=== PATIENT | male | born 1990 | race African-American/Black ===

== ENCOUNTER 2017-09-19 08:07 | Emergency (ER) | payer SELFPAY ==
[2017-09-19] MEDS ORDERED: CYCLOBENZAPRINE 10 MG TAB ONE (08:27)
[2017-09-19] MEDS ORDERED: KETOROLAC 30 MG/ML INJ ONE (08:29)
--- NOTE | 2017-09-19 09:25 | RAD REPORT ---
EXAM DESCRIPTION: Shoulder Right 2 View - 09/19/2017 8:49 am CLINICAL HISTORY: Shoulder pain, history of dislocation several years earlier COMPARISON: None. TECHNIQUE: Internal and external rotation views of the right shoulder were obtained. Scapular Y-view also obtained FINDINGS: There is no fracture or dislocation. AC joint is normal in appearance. No deformity of the humeral head identifiable. Acromial humeral joint space is normal. No abnormal soft tissue calcifica tions. No acute or suspicious findings. Ribs in lung parenchyma of the upper chest are unremarkable. IMPRESSION: Negative two-view right shoulder examination.
--- NOTE | 2017-09-19 09:37 | ER ---
Nurse's Notes [facility] Name: Eron Das Age: 27 yrs Sex: Male : 1990 Arrival Date: 09/19/2017 Time: 08:08 Bed 14 Private MD: Diagnosis: Pain in right shoulder Presentation: 09/19 08:14 Presenting complaint: Patient states: " My right shoulder and back hurt." Denies known ph injury, reports pain that began yesterday in R upper back and shoulder that radiates to elbow. Transition of care: patient was not received from another setting of care. Onset of symptoms was September 19, 2017. Initial Sepsis Screen: Does the patient meet any 2 criteria? No. Patient's initial sepsis screen is negative. Does the patient have a suspected source of infection? No. Patient's initial sepsis screen is negative. Care prior to arrival: None. 08:14 Method Of Arrival: Ambulatory 08:14 Acuity: HOOD 4 ph Historical: - Allergies: 08:16 No Known Allergies; ph - Home Meds: 08:16 None [Active]; ph - PMHx: 08:16 None; ph - PSHx: 08:16 None; ph - Immunization history:: Adult Immunizations up to date. - Social history:: Smoking status: Patient uses tobacco products, smokes one-half pack cigarettes per day. Screenin:18 Abuse screen: Denies threats or abuse. Denies injuries from another. Nutritional ch screening: No deficits noted. Tuberculosis screening: No symptoms or risk factors identified. Fall Risk None identified. Assessment: 08:18 General: Appears in no apparent distress. comfortable, Behavior is calm, cooperative, ch appropriate for age. Pain: Complains of pain in left trapezius, left scapular area and right arm Pain currently is 10 out of 10 on a pain scale. Pain began suddenly. Neuro: No deficits noted. Cardiovascular: Heart tones S1 S2 present. Respiratory: Airway is patent Respiratory effort is even, unlabored. GI: No signs and/or symptoms were reported involving the gastrointestinal system. : No signs and/or symptoms were reported regarding the genitourinary system. Derm: Skin is pink, warm \\T\\ dry. Musculoskeletal: Circulation, motion, and sensation intact. Capillary refill < 3 seconds, in bilateral fingers. toes. Range of motion: limited in right shoulder pt c/o pain to R shoulder. 08:34 Reassessment: pt. went to X-ray. rb1 09:10 Reassessment: Patient appears in no apparent distress at this time. Patient and/or ph family updated on plan of care and expected duration. Pain level reassessed. Patient is alert, oriented x 3, equal unlabored respirations, skin warm/dry/pink. 10:09 Reassessment: Patient appears in no apparent distress at this time. No changes from ph previously documented assessment. Family at bedside. Vital Signs: 08:15 BP 103 / 81; Pulse 76; Resp 18; Temp 97.8; Pulse Ox 98% on R/A; Weight 63.5 kg; Height ph 5 ft. 4 in. (162.56 cm); Pain 10/10; 08:34 rb1 09:10 BP 102 / 78; Pulse 74; Resp 17; Pulse Ox 99% on R/A; Pain 8/10; ph 10:00 BP 103 / 79; Pulse 59; Resp 16; Pulse Ox 100% on R/A; ph 08:15 Body Mass Index 24.03 (63.50 kg, 162.56 cm) ph 08:34 pt. went to X-ray [facility] ED Course: 08:08 Patient arrived in ED. ph 08:15 Triage completed. ph 08:16 Reese Alexandra PA is PHCP. cp 08:16 Reese Noble MD is Attending Physician. cp 08:16 Arm band placed on. ph 08:18 Allison James, LASHONDA is Primary Nurse. ch 08:18 No apparent distress. Resting quietly. ch 08:18 Patient has correct armband on for positive identification. Bed in low position. Call ch light in reach. Side rails up X 1. Adult w/ patient. Warm blanket given. 08:18 No provider procedures requiring assistance completed. Patient did not have IV access ch during this emergency room visit. 08:39 XRAY Shoulder RIGHT 2 view In Process Unspecified. EDMS 09:35 Kenny Shetty MD is Referral Physician. cp 10:13 No provider procedures requiring assistance completed. Patient did not have IV access ph during this emergency room visit. Administered Medications: 08:32 Drug: TORadol 60 mg Route: IM; Site: right gluteus; rb1 08:32 Drug: Flexeril 10 mg Route: PO; rb1 Outcome: 09:36 Discharge ordered by . cp 10:13 Discharged to home ambulatory, with family. ph 10:13 Condition: stable 10:13 Discharge instructions given to patient, Instructed on discharge instructions, follow up and referral plans. medication usage, Demonstrated understanding of instructions, follow-up care, medications, Prescriptions given X 2. 10:14 Patient left the ED. ph Signatures: Dispatcher [employer] EDMS Allison James RN RN Francisca Quintanilla RN RN ph Reese Alexandra PA PA cp Barber, Rebecca, RN RN rb1 Corrections: (The following items were deleted from the chart) 10:13 09:10 BP 102 / 78; Pulse 74bpm; Resp 17bpm; Pulse Ox 99% RA; ph ph
--- NOTE | 2017-09-19 09:37 | EDPHYS ---
Physician Documentation [facility] Name: Eron Das Age: 27 yrs Sex: Male : 1990 Arrival Date: 09/19/2017 Time: 08:08 Bed 14 Private MD: ED Physician Reese Noble HPI: 09/19 08:23 This 27 yrs old Black Male presents to ER via Ambulatory with complaints of right cp shoulder pain. 08:23 The patient or guardian complains of decreased range of motion, pain, that is acute. cp right shoulder. 08:23 Context: resulted from an unknown reason, The patient experiences decreased range of cp motion, when attempts to raise arm. 08:23 Onset: The symptoms/episode began/occurred yesterday. Associated signs and symptoms: cp Pertinent negatives: chest pain, diaphoresis, neck pain, Numbness in right arm shortness of breath, Weakness in right arm. Severity of symptoms: in the emergency department the symptoms are unchanged, despite home interventions. Historical: - Allergies: 08:16 No Known Allergies; ph - Home Meds: 08:16 None [Active]; ph - PMHx: 08:16 None; ph - PSHx: 08:16 None; ph - Immunization history:: Adult Immunizations up to date. - Social history:: Smoking status: Patient uses tobacco products, smokes one-half pack cigarettes per day. ROS: 08:25 Eyes: Negative for injury, pain, redness, and discharge. cp 08:25 Constitutional: Negative for body aches, chills, fever, poor PO intake. 08:25 ENT: Negative for drainage from ear(s), ear pain, sore throat, difficulty swallowing, difficulty handling secretions. 08:25 Neck: Negative for pain with movement, pain at rest, stiffness, tenderness, bony tenderness. 08:25 Cardiovascular: Negative for chest pain, edema, palpitations. 08:25 Respiratory: Negative for cough, shortness of breath, wheezing. 08:25 Abdomen/GI: Negative for abdominal pain, nausea, vomiting, and diarrhea, anorexia. 08:25 Back: Negative for pain at rest, pain with movement, radiated pain. 08:25 MS/extremity: Positive for decreased range of motion, pain, tenderness, of the right shoulder, Negative for injury or acute deformity, paresthesias. 08:25 Skin: Negative for cellulitis, rash. 08:25 Neuro: Negative for altered mental status, headache, numbness, tingling, weakness. 08:25 All other systems are negative. Exam: 08:30 Constitutional: The patient appears in no acute distress, alert, awake, non-toxic, well cp developed, well nourished. 08:30 Head/Face: Normocephalic, atraumatic. cp 08:30 Eyes: Periorbital structures: appear normal, Conjunctiva: normal, no exudate, no injection, Lids and lashes: appear normal, bilaterally. 08:30 ENT: External ear(s): are unremarkable, Nose: is normal, Mouth: Lips: moist, Oral mucosa: moist, Posterior pharynx: is normal, airway is patent, no erythema, no exudate. 08:30 Neck: C-spine: vertebral tenderness, is not appreciated, crepitus, is not appreciated, ROM/movement: is normal, is supple, without pain, no range of motions limitations, no nuchal rigidity. 08:30 Chest/axilla: Inspection: normal, Palpation: is normal, no crepitus, no tenderness. 08:30 Cardiovascular: Rate: normal, Rhythm: regular. 08:30 Respiratory: the patient does not display signs of respiratory distress, Respirations: normal, no use of accessory muscles, no retractions, no splinting, no tachypnea, labored breathing, is not present, Breath sounds: are clear throughout, no decreased breath sounds, no stridor, no wheezing. 08:30 Abdomen/GI: Exam negative for discomfort, distension, guarding, Inspection: abdomen appears normal. 08:30 Back: pain, is absent, ROM is normal, muscle spasm, is not present. 08:30 Musculoskeletal/extremity: Extremities: grossly normal except: noted in the right lateral shoulder: decreased ROM, pain, tenderness, There is no evidence of deformity, Pulses: noted to be 2+ in the right radial artery and left radial artery, Sensation intact. 08:30 Skin: cellulitis, is not appreciated, no rash present. Vital Signs: 08:15 BP 103 / 81; Pulse 76; Resp 18; Temp 97.8; Pulse Ox 98% on R/A; Weight 63.5 kg; Height ph 5 ft. 4 in. (162.56 cm); Pain 10/10; 08:34 rb1 09:10 BP 102 / 78; Pulse 74; Resp 17; Pulse Ox 99% on R/A; Pain 8/10; ph 10:00 BP 103 / 79; Pulse 59; Resp 16; Pulse Ox 100% on R/A; ph 08:15 Body Mass Index 24.03 (63.50 kg, 162.56 cm) ph 08:34 pt. went to X-ray rb1 MDM: 08:16 Patient medically screened. cp 09:00 Differential diagnosis: Anterior dislocation with fracture, Anterior dislocation cp without fracture, Posterior dislocation with fracture, Posterior dislocation without fracture, tendonitis. 09:35 Data reviewed: vital signs, nurses notes, radiologic studies, plain films, and as a cp result, I will discharge patient. 09:35 Test interpretation: by ED physician or midlevel provider: plain radiologic studies. cp 09:35 Counseling: I had a detailed discussion with the patient and/or guardian regarding: the cp historical points, exam findings, and any diagnostic results supporting the discharge/admit diagnosis, radiology results, the need for outpatient follow up, a orthopedic surgeon, to return to the emergency department if symptoms worsen or persist or if there are any questions or concerns that arise at home. Response to treatment: the patient's symptoms have mildly improved after treatment, and as a result, I will discharge patient. 09/19 08:23 Order name: XRAY Shoulder RIGHT 2 view; Complete Time: 09:26 cp 09/19 09:26 Interpretation: Reviewed. 09/19 09:15 Order name: Sling; Complete Time: 10:10 cp Administered Medications: 08:32 Drug: TORadol 60 mg Route: IM; Site: right gluteus; rb1 08:32 Drug: Flexeril 10 mg Route: PO; rb1 Disposition: 16:37 Co-signature as Attending Physician, Reese Noble MD I agree with the assessment and mi plan of care. Disposition: 09/19/17 09:36 Discharged to Home. Impression: Pain in right shoulder. - Condition is Stable. - Discharge Instructions: Shoulder Pain. - Prescriptions for Cyclobenzaprine 10 mg Oral Tablet - take 1 tablet by ORAL route every 8 hours As needed; 20 tablet. Diclofenac Sodium 75 mg Oral Tablet Sustained Release - take 1 tablet by ORAL route 2 times per day; 30 tablet. - Work release form, Medication Reconciliation Form, Thank You Letter, Antibiotic Education, Prescription Opioid Use form. - Follow up: Kenny Shetty MD; When: 2 - 3 days; Reason: right shoulder pain. - Problem is new. - Symptoms have improved. Signatures: Dispatcher [employer] Allison Rodriguez, RN RN Reese Priest MD MD cha Hall, Patricia, RN RN ph Reese Alexandra, PA Nadira Siegel cp, RN RN rb1 Corrections: (The following items were deleted from the chart) 10:14 09:36 09/19/2017 09:36 Discharged to Home. Impression: Pain in right shoulder. ph Condition is Stable. Forms are Medication Reconciliation Form, Thank You Letter, Antibiotic Education, Prescription Opioid Use. Follow up: Kenny Shetty; When: 2 - 3 days; Reason: right shoulder pain. Problem is new. Symptoms have improved. cp
== END 2017-09-19 10:14 | disposition home or self-care (01) ==
LOC: ER 08:07
DX: M25.511 Pain in right shoulder (principal); F17.210 Nicotine dependence, cigarettes, uncomplicated
CPT/HCPCS: 96372; 99283

== ENCOUNTER 2018-11-03 13:53 | Emergency (ER) | payer SELFPAY ==
[2018-11-03] MEDS ORDERED: IBUPROFEN 400 MG TAB ONE (14:40)
--- NOTE | 2018-11-03 15:27 | EDPHYS ---
Physician Documentation [facility] Name: Eron Das Age: 28 yrs Sex: Male : 1990 Arrival Date: 11/03/2018 Time: 13:56 Bed 12 Private MD: ED Physician Ramirez Noel HPI: 11/03 14:19 This 28 yrs old Black Male presents to ER via Ambulatory with complaints of Back Pain. m 14:19 The patient presents with sore throat. Onset: The symptoms/episode began/occurred jmm gradually, 2 day(s) ago. Modifying factors: The symptoms are alleviated by nothing, the symptoms are aggravated by nothing. Associated signs and symptoms: Pertinent positives: fever, headache. This is a 28 year old male with no chronic medical conditions that presents to the ED with complaints of sore throat, headache, and right upper back pain. Patient denies injury. . Historical: - Allergies: 14:00 No Known Allergies; aj1 - Home Meds: 14:00 None [Active]; aj1 - PMHx: 14:00 None; aj1 - PSHx: 14:00 None; aj1 - Immunization history:: Flu vaccine is not up to date. - Social history:: Smoking status: Patient uses tobacco products, smokes one-half pack cigarettes per day. - Ebola Screening: : Patient denies travel to an Ebola-affected area in the 21 days before illness onset. ROS: 14:19 Constitutional: Positive for fever. jmm 14:19 ENT: Positive for sore throat. 14:19 Back: Positive for pain with movement. 14:19 Neuro: Positive for headache. 14:19 All other systems are negative. Exam: 14:19 Head/Face: atraumatic. Eyes: EOMI, no conjunctival erythema appreciated jmm 14:19 Neck: Trachea midline, Supple Chest/axilla: Normal chest wall appearance and motion. 14:19 Constitutional: The patient appears alert, awake, uncomfortable. 14:19 ENT: Posterior pharynx: Uvula: normal, midline, erythema, that is moderate, peritonsillar mass, is not appreciated. 14:19 Cardiovascular: Rate: normal, Rhythm: regular. 14:19 Respiratory: the patient does not display signs of respiratory distress, Respirations: normal. 14:19 Back: right sided trapezius pain on palpation. 14:19 Musculoskeletal/extremity: ROM: intact in all extremities. 14:19 Skin: Appearance: Color: normal in color, pink. 14:19 Neuro: Orientation: is normal, Mentation: is normal, Memory: is normal. 14:19 Psych: Behavior/mood is pleasant, cooperative. Vital Signs: 14:00 BP 124 / 89; Pulse 67; Resp 16; Temp 98.3; Pulse Ox 100% on R/A; Height 5 ft. 9 in. aj1 (175.26 cm) (R); Pain 10/10; MDM: 14:19 Patient medically screened. [facility] 15:22 Data reviewed: vital signs, nurses notes. Counseling: I had a detailed discussion with sima the patient and/or guardian regarding: the historical points, exam findings, and any diagnostic results supporting the discharge/admit diagnosis, lab results, the need for outpatient follow up. ED course: Back pain appears musculoskeletal, no midline tenderness, no chest pain. Strep positive. No clinical signs of fishing captain appreciated. Patient prescribed oral steroids and otherwise given strict return precautions. Patient understood and agrees with the plan of care. . 11/03 14:03 Order name: Strep; Complete Time: 14:39 aj Administered Medications: 14:26 Drug: Motrin 800 mg Route: PO; ss 15:41 Follow up: Response: [facility] adverse [facility] 15:41 Drug: Dexamethasone 10 mg Route: IM; Site: right deltoid; aj 15:50 Follow up: Response: No adverse reaction; No adverse reaction, no adverse reaction as ss of now. Pt states he would not like to wait for the rest of his 15 minutes shot time. Verbalizes understanding of risks involved. Disposition: 16:54 Co-signature as Attending Physician, Ramirez Noel MD. rn Disposition: 11/03/18 15:26 Discharged to Home. Impression: Streptococcal pharyngitis. - Condition is Stable. - Discharge Instructions: Strep Throat. - Prescriptions for Amoxicillin 875 mg Oral Tablet - take 1 tablet by ORAL route every 12 hours for 10 days; 20 tablet. - Medication Reconciliation Form, Thank You Letter, Antibiotic Education, Prescription Opioid Use form. - Follow up: Private Physician; When: 2 - 3 days; Reason: Recheck today's complaints, Continuance of care, Re-evaluation by your physician. Signatures: Dispatcher [employer] EDBria Gonsalves, RN RN aj1 Yg Dominguez PA PA jmm Nieto, Roman, MD MD rn [facility] RN RN ss Corrections: (The following items were deleted from the chart) 15:57 15:26 11/03/2018 15:26 Discharged to Home. Impression: Streptococcal pharyngitis. aj1 Condition is Stable. Forms are Medication Reconciliation Form, Thank You Letter, Antibiotic Education, Prescription Opioid Use. Follow up: Private Physician; When: 2 - 3 days; Reason: Recheck today's complaints, Continuance of care, Re-evaluation by your physician. rosa
--- NOTE | 2018-11-03 15:27 | ER ---
Nurse's Notes [facility] Name: Eron Das Age: 28 yrs Sex: Male : 1990 Arrival Date: 11/03/2018 Time: 13:56 Bed 12 Private MD: Diagnosis: Streptococcal pharyngitis Presentation: 11/03 13:58 Presenting complaint: Patient states: "It started Monday, it started with a aj1 migraine, then I woke up and my whole body is in pain. Then I woke up yesterday and sweat like I just got out the shower. Then I woke up this morning and my tonsils are swollen". Transition of care: patient was not received from another setting of care. Onset of symptoms was October 2018. Risk Assessment: Do you want to hurt yourself or someone else? Patient reports no desire to harm self or others. Initial Sepsis Screen: Does the patient meet any 2 criteria? No. Patient's initial sepsis screen is negative. Does the patient have a suspected source of infection? No. Patient's initial sepsis screen is negative. Care prior to arrival: None. 13:58 Method Of Arrival: Ambulatory aj1 13:58 Acuity: HOOD 4 aj1 Triage Assessment: 14:00 General: Appears in no apparent distress. comfortable, Behavior is calm, cooperative, aj1 appropriate for age. Pain: Complains of pain in generalized body aches Pain currently is 10 out of 10 on a pain scale. Neuro: Level of Consciousness is awake, alert, obeys commands. Cardiovascular: Patient's skin is warm and dry. Respiratory: Airway is patent Respiratory effort is even, unlabored, Respiratory pattern is regular, symmetrical. Historical: - Allergies: 14:00 No Known Allergies; aj1 - Home Meds: 14:00 None [Active]; aj1 - PMHx: 14:00 None; aj1 - PSHx: 14:00 None; aj1 - Immunization history:: Flu vaccine is not up to date. - Social history:: Smoking status: Patient uses tobacco products, smokes one-half pack cigarettes per day. - Ebola Screening: : Patient denies travel to an Ebola-affected area in the 21 days before illness onset. Screenin:05 Abuse screen: Denies threats or abuse. Denies injuries from another. Nutritional aj1 screening: No deficits noted. Tuberculosis screening: No symptoms or risk factors identified. 15:41 Fall Risk None identified. aj1 Assessment: 14:05 General: Appears in no apparent distress. uncomfortable, Behavior is calm, cooperative, aj1 appropriate for age. Pain: Complains of pain in generalized body aches Pain currently is 10 out of 10 on a pain scale. Neuro: Level of Consciousness is awake, alert, obeys commands, Oriented to person, place, time, situation, Gait is steady, Speech is normal. Cardiovascular: Patient's skin is warm and dry. Respiratory: Airway is patent Respiratory effort is even, unlabored, Respiratory pattern is regular, symmetrical. GI: No signs and/or symptoms were reported involving the gastrointestinal system. : No signs and/or symptoms were reported regarding the genitourinary system. EENT: Throat is reddened has enlarged tonsils bilaterally Reports sore throat. Derm: No signs and/or symptoms reported regarding the dermatologic system. Skin is pink, warm \\T\\ dry. normal. Musculoskeletal: Range of motion: intact in all extremities. 15:05 Reassessment: Patient appears in no apparent distress at this time. No changes from aj1 previously documented assessment. Patient and/or family updated on plan of care and expected duration. Pain level reassessed. Patient is alert, oriented x 3, equal unlabored respirations, skin warm/dry/pink. 15:41 Reassessment: Patient appears in no apparent distress at this time. No changes from aj1 previously documented assessment. Patient and/or family updated on plan of care and expected duration. Pain level reassessed. Patient is alert, oriented x 3, equal unlabored respirations, skin warm/dry/pink. Vital Signs: 14:00 BP 124 / 89; Pulse 67; Resp 16; Temp 98.3; Pulse Ox 100% on R/A; Height 5 ft. 9 in. aj1 (175.26 cm) (R); Pain 10/10; ED Course: 13:56 Patient arrived in ED. as 13:59 Triage completed. aj1 14:00 Arm band placed on Patient placed in an exam room. 1 14:03 Yg Dominguez PA is PHCP. [facility] 14:03 Ramirez Noel MD is Attending Physician. [facility] 14:04 Lyle, Bria, RN is Primary Nurse. aj1 14:05 Patient has correct armband on for positive identification. aj1 14:05 No provider procedures requiring assistance completed. aj1 15:41 Patient did not have IV access during this emergency room visit. aj1 Administered Medications: 14:26 Drug: Motrin 800 mg Route: PO; ss 15:41 Follow up: Response: No adverse reaction aj1 15:41 Drug: Dexamethasone 10 mg Route: IM; Site: right deltoid; aj1 15:50 Follow up: Response: No adverse reaction; No adverse reaction, no adverse reaction as ss of now. Pt states he would not like to wait for the rest of his 15 minutes shot time. Verbalizes understanding of risks involved. Outcome: 15:26 Discharge ordered by . rosa 15:43 Condition: good ss 15:50 Discharged to home ambulatory. ss 15:50 Discharge instructions given to patient, Instructed on discharge instructions, follow up and referral plans. medication usage, Demonstrated understanding of instructions, follow-up care, medications, Prescriptions given X 1. 15:57 Patient left the ED. aj1 Signatures: Bria Alvarenga, RN RN aj1 Yg Dominguez PA PA jmm Martinez, Amelia as Rosie Christy RN RN ss
[2018-11-03] MEDS ORDERED: DEXAMETHASONE 10 MG/ML VIAL ONE (15:52)
== END 2018-11-03 15:57 | disposition home or self-care (01) ==
LOC: ER 13:53
DX: J02.0 Streptococcal pharyngitis (principal); F17.210 Nicotine dependence, cigarettes, uncomplicated
CPT/HCPCS: 87081; 96372; 99283; J1100

== ENCOUNTER 2020-05-13 03:18 | Emergency (ER) | payer SELFPAY ==
[2020-05-13] MEDS ORDERED: IPRATROPIUM BROM 0.5MG/2.5ML ONE (04:02)
[2020-05-13] MEDS ORDERED: METHYLPREDNISOLONE 125 MG INJ ONE (04:02)
[2020-05-13] MEDS ORDERED: LEVALBUTEROL 1.25 MG/3 ML NEB ONE (04:03)
[2020-05-13] MEDS ORDERED: Magnesium Sulfate 2gm IVPB 2 G/50 ML BAG IV ONE (04:03)
[2020-05-13 05:22] LABS: SARS-COV-2 RT PCR NEGATIVE (NEGATIVE)
--- NOTE | 2020-05-13 05:30 | EDPHYS ---
Physician Documentation [facility] Name: Eron Das Age: 29 yrs Sex: Male : 1990 Arrival Date: 05/13/2020 Time: 03:21 Bed 13 Private MD: ED Physician Ramirez Noel HPI: 05/13 03:49 This 29 yrs old Black Male presents to ER via Ambulatory with complaints of Asthma rn Exacerbation. 03:49 The patient presents to the emergency department with wheezing, that began without any rn particular precipitating event, the patient was reported to have audible wheezing, trouble breathing. Onset: The symptoms/episode began/occurred today. Modifying factors: The symptoms are alleviated by nothing, the symptoms are aggravated by nothing. Severity of symptoms: At their worst the symptoms were moderate in the emergency department the symptoms are unchanged. The patient has experienced similar episodes in the past. The patient has not recently seen a physician. Denies fever or feeling ill, reports identical to previous asthma exacerbations. No known sick contacts. . Historical: - Allergies: 03:37 No Known Allergies; sg - Home Meds: 03:37 Albuterol Inhl [Active]; sg - PMHx: 03:37 Asthma; sg - PSHx: 03:37 None; sg - Immunization history:: Adult Immunizations up to date. - Social history:: Smoking status: Patient reports the use of cigarette tobacco products. - Family history:: not pertinent. - Hospitalizations: : No recent hospitalization is reported. ROS: 03:49 Constitutional: Negative for fever, chills, and weight loss, Eyes: Negative for injury, rn pain, redness, and discharge, Neck: Negative for injury, pain, and swelling, Cardiovascular: Negative for chest pain, palpitations, and edema, Respiratory: Negative for pleuritic chest pain Abdomen/GI: Negative for abdominal pain, nausea, vomiting, diarrhea, and constipation, Back: Negative for injury and pain, MS/Extremity: Negative for injury and deformity, Skin: Negative for injury, rash, and discoloration, Neuro: Negative for headache, weakness, numbness, tingling, and seizure. Exam: 03:49 Constitutional: Thin male, moderate tachypnea, but then stops interview to talk on rn phone Head/Face: Normocephalic, atraumatic. ENT: No stridor Cardiovascular: Regular rate and rhythm Respiratory: + moderate tachypnea, 3-4 word sentences. Skin: No cyanosis MS/ Extremity: Pulses equal, no cyanosis. Neuro: Awake and alert, GCS 15 Vital Signs: 03:37 BP 132 / 70; Pulse 68; Resp 26; Temp 98.9(TE); Pulse Ox 99% on R/A; sg 03:41 Weight 63.5 kg; Height 5 ft. 5 in. (165.10 cm); sg 05:00 BP 118 / 69; Pulse 85; Resp 17; Pulse Ox 100% on R/A; ll2 03:41 Body Mass Index 23.30 (63.50 kg, 165.10 cm) sg MDM: 03:37 Patient medically screened. rn 05:27 Differential diagnosis: acute asthma, reactive airway. Differential diagnosis: URI. rn Data reviewed: vital signs, nurses notes. Data reviewed: lab test result(s), radiologic studies, plain films, and as a result, I will discharge patient. Counseling: I had a detailed discussion with the patient and/or guardian regarding: the historical points, exam findings, and any diagnostic results supporting the discharge/admit diagnosis, lab results, radiology results, the need for outpatient follow up, to return to the emergency department if symptoms worsen or persist or if there are any questions or concerns that arise at home. Response to treatment: the patient's symptoms have markedly improved after treatment, the patient's condition has returned to base line, the patient is now symptom free, and as a result, I will discharge patient. Special discussion: I discussed with the patient/guardian in detail that at this point there is no indication for admission to the hospital. It is understood, however, that if the symptoms persist or worsen the patient needs to return immediately for re-evaluation. 05:27 ED course: Pt feels much better, clear cxr, covid and flu neg. Will dc home with rn steroids. Has inhaler. . 05/13 03:41 Order name: XRAY Chest (1 view) rn 05/13 05:22 Order name: COVID-19/FLU A+B; Complete Time: 05:27 EDMS 05/13 03:41 Order name: IV Start; Complete Time: 04:12 rn Administered Medications: 04:12 Drug: SOLU-Medrol 125 mg Route: IVP; Site: right antecubital; ll2 05:15 Follow up: Response: No adverse reaction ll2 04:12 Drug: Magnesium Sulfate 1 grams Route: IVPB; Infused Over: 1 hrs; Site: right ll2 antecubital; 05:15 Follow up: Response: No adverse reaction; IV Status: Completed infusion; IV Intake: ll2 100ml 04:12 Drug: Xopenex (3) 1.25 mg Route: Inhalation; ll2 05:15 Follow up: Response: No adverse reaction ll2 04:13 Drug: AtroVENT Aerosol 0.5 mg Route: Inhalation; ll2 05:15 Follow up: Response: No adverse reaction ll2 Disposition: 05/13/20 05:29 Discharged to Home. Impression: Unspecified asthma with (acute) exacerbation. - Condition is Stable. - Discharge Instructions: Asthma, Adult. - Prescriptions for Prednisone 20 mg Oral Tablet - take 3 tablet by ORAL route once daily for 5 days; 15 tablet. Albuterol Sulfate 90 mcg/actuation - inhale 1-2 puff by INHALATION route every 4-6 hours; 1 Inhaler. - Medication Reconciliation Form, Thank You Letter, Antibiotic Education, Prescription Opioid Use form. - Follow up: Private Physician; When: As needed; Reason: Recheck today's complaints, Re-evaluation by your physician. - Problem is an acute exacerbation. - Symptoms have improved. Signatures: Dispatcher [employer] EDKenny Nunes RN Ramirez Vargas MD MD rn Linscombe, Lacie, RN RN ll2 Corrections: (The following items were deleted from the chart) 04:20 03:42 Influenza Screen (A \T\ B)+BA.LAB.BRZ ordered. EDMS EDMS 04:22 03:42 CORONAVIRUS+MR.LAB.BRZ ordered. EDMS EDMS 05:38 05:29 05/13/2020 05:29 Discharged to Home. Impression: Unspecified asthma with (acute) ll2 exacerbation. Condition is Stable. Forms are Medication Reconciliation Form, Thank You Letter, Antibiotic Education, Prescription Opioid Use. Follow up: Private Physician; When: As needed; Reason: Recheck today's complaints, Re-evaluation by your physician. Problem is an acute exacerbation. Symptoms have improved. rn
--- NOTE | 2020-05-13 05:30 | ER ---
Nurse's Notes [facility] Name: Eron Das Age: 29 yrs Sex: Male : 1990 Arrival Date: 05/13/2020 Time: 03:21 Bed 13 Private MD: Diagnosis: Unspecified asthma with (acute) exacerbation Presentation: 05/13 03:37 Chief complaint: Patient states: I had asthma as a child, then it just went away so I sg haven't had to be on any medications, until recently. I saw my pcp and he prescribed me the pump again, albuterol, it hasnt really kicked in or isnt working for me. My chest feels tight and Im having some shortness of breath. pt denies N/V/D/Fever at this time for triage. Coronavirus screen: Client denies travel out of the [place] in the last 14 days. shortness of breath, Client presents with at least one sign or symptom that may indicate coronavirus-19. Standard/surgical mask placed on the client. Provider contacted for isolation considerations. The client denies any previous COVID testing. Ebola Screen: Patient negative for fever greater than or equal to 101.5 degrees Fahrenheit, and additional compatible Ebola Virus Disease symptoms Patient denies exposure to infectious person. Patient denies travel to an Ebola-affected area in the 21 days before illness onset. No symptoms or risks identified at this time. Initial Sepsis Screen: Does the patient meet any 2 criteria? No. Patient's initial sepsis screen is negative. Does the patient have a suspected source of infection? No. Patient's initial sepsis screen is negative. Risk Assessment: Do you want to hurt yourself or someone else? Patient reports no desire to harm self or others. Onset of symptoms was May 13, 2020. Care prior to arrival: None. Activity prior to arrival: None. Mechanism of Injury: No Mechanism of Injury. Transition of care: patient was not received from another setting of care. 03:37 Method Of Arrival: Ambulatory sg 03:37 Acuity: HOOD 3 sg Historical: - Allergies: 03:37 No Known Allergies; sg - Home Meds: 03:37 Albuterol Inhl [Active]; sg - PMHx: 03:37 Asthma; sg - PSHx: 03:37 None; sg - Immunization history:: Adult Immunizations up to date. - Social history:: Smoking status: Patient reports the use of cigarette tobacco products. - Family history:: not pertinent. - Hospitalizations: : No recent hospitalization is reported. Screenin:15 Abuse screen: Denies threats or abuse. Nutritional screening: No deficits noted. ll2 Tuberculosis screening: No symptoms or risk factors identified. Fall Risk None identified. Assessment: 03:45 General: Appears in no apparent distress. Behavior is cooperative, anxious. Pain: ll2 Complains of pain in chest. Neuro: Level of Consciousness is awake, alert, obeys commands, Oriented to person, place, time, situation. Cardiovascular: Patient's skin is warm and dry. Respiratory: Airway is patent Respiratory effort is with retractions, Respiratory pattern is symmetrical. GI: No signs and/or symptoms were reported involving the gastrointestinal system. : No signs and/or symptoms were reported regarding the genitourinary system. EENT: No signs and/or symptoms were reported regarding the EENT system. Derm: Skin is intact, is healthy with good turgor, Skin is dry, Skin is normal, Skin temperature is warm. Musculoskeletal: Circulation, motion, and sensation intact. Range of motion: intact in all extremities. 04:45 Reassessment: Patient and/or family updated on plan of care and expected duration. Pain ll2 level reassessed. Patient is alert, oriented x 3, equal unlabored respirations, skin warm/dry/pink. pt states "the breathing treatment helped a lot", ERD notified. Vital Signs: 03:37 BP 132 / 70; Pulse 68; Resp 26; Temp 98.9(TE); Pulse Ox 99% on R/A; sg 03:41 Weight 63.5 kg; Height 5 ft. 5 in. (165.10 cm); sg 05:00 BP 118 / 69; Pulse 85; Resp 17; Pulse Ox 100% on R/A; ll2 03:41 Body Mass Index 23.30 (63.50 kg, 165.10 cm) sg ED Course: 03:21 Patient arrived in ED. es 03:37 Ramirez Noel MD is Attending Physician. rn 03:38 Arm band placed on. sg 03:40 Triage completed. sg 03:43 Kalani Burns RN is Primary Nurse. ll2 03:45 COVID swab sent to lab. sg 04:13 XRAY Chest (1 view) In Process Unspecified. EDMS 04:15 Patient has correct armband on for positive identification. Call light in reach. Side ll2 rails up X 1. Pulse ox on. NIBP on. 04:15 Inserted saline lock: 20 gauge in right antecubital area, using aseptic technique. ll2 05:38 No provider procedures requiring assistance completed. IV discontinued, intact, ll2 bleeding controlled, No redness/swelling at site. Pressure dressing applied. Administered Medications: 04:12 Drug: SOLU-Medrol 125 mg Route: IVP; Site: right antecubital; ll2 05:15 Follow up: Response: No adverse reaction ll2 04:12 Drug: Magnesium Sulfate 1 grams Route: IVPB; Infused Over: 1 hrs; Site: right ll2 antecubital; 05:15 Follow up: Response: No adverse reaction; IV Status: Completed infusion; IV Intake: ll2 100ml 04:12 Drug: Xopenex (3) 1.25 mg Route: Inhalation; ll2 05:15 Follow up: Response: No adverse reaction ll2 04:13 Drug: AtroVENT Aerosol 0.5 mg Route: Inhalation; ll2 05:15 Follow up: Response: No adverse reaction ll2 Outcome: 05:29 Discharge ordered by . rn 05:38 Discharged to home ambulatory. ll2 05:38 Condition: stable 05:38 Discharge instructions given to patient, Instructed on discharge instructions, follow up and referral plans. medication usage, Demonstrated understanding of instructions, follow-up care, medications, Prescriptions given X 2. 05:38 Patient left the ED. ll2 Signatures: Dispatcher [employer] EDIL Kenny Dumont, LASHONDA RN Kimberly Hernandes Roman, MD MD rn Linscombe, Lacie, RN RN ll2 Corrections: (The following items were deleted from the chart) 03:41 03:37 Acuity: HOOD 4 [facility] 03:42 03:37 BP 132 / 70; Pulse 68bpm; Resp 20bpm; Pulse Ox 99% RA; Temp 98.9F Temporal; [facility] 05:11 03:26 COVID swab sent to lab. [facility]
--- NOTE | 2020-05-13 11:19 | RAD REPORT ---
EXAM DESCRIPTION: RAD - Chest Single View - 05/13/2020 4:13 am CLINICAL HISTORY: The patient is 29 years old and is Male; DYSPNEA TECHNIQUE: Single view of the chest. COMPARISON: No relevant prior studies available. FINDINGS: Lungs: Unremarkable. No consolidation. Pleural space: Unremarkable. No pneumothorax. Heart: Unremarkable. No cardiomegaly. Mediastinum: Unremarkable. Bones/joints: No acute fracture visualized. Upper abdomen: No free air in the visualized upper abdomen. IMPRESSION: No acute cardiopulmonary process identified. Electronically signed by: Ibis Brooks MD 05/13/2020 4:54 AM [employer] Due to temporary technical issues with the PACS/Fluency reporting system, reports are being signed by the in house radiologist without review as a courtesy to ensure prompt reporting. The interpreting r adiologist is fully responsible for the content of the report.
== END 2020-05-13 05:38 | disposition home or self-care (01) ==
LOC: ER 03:18
DX: J45.901 Unspecified asthma with (acute) exacerbation (principal); Z20.822 Contact with and (suspected) exposure to COVID-19; F17.210 Nicotine dependence, cigarettes, uncomplicated
CPT/HCPCS: 0240U; 71045; 96365; 96375; 99284; J2930; J3475